=== PATIENT | female | born 1960 | race Caucasian/White ===

== ENCOUNTER → 2020-08-15 14:40 | Outpatient (CLI) | payer OTHER, SELFPAY ==
--- NOTE | ~2020-08-15 | MM_ITS ---
EXAMINATION: MM screening mello BI w ankush HISTORY: Screening mammogram TECHNIQUE: Craniocaudal and mediolateral oblique 3-D tomosynthesis images were obtained and synthetic 2-D images were generated. Bilateral rotated lateral cc views. .CAD analysis was submitted and inter preted. COMPARISON: 01/30/2012 diagnostic left digital mammogram and left breast ultrasound 01/20/2012 bilateral digital screening mammogram 01/13/2011 bilateral diagnostic digital mammogram and left breast ultrasound BREAST PARENCHYMAL COMPOSITION: The breasts are heterogeneously dense, which may obscure small masses . FINDINGS: There is a biopsy marker on the right; history of prior benign right breast biopsy. There a re scattered bilateral benign calcifications. There is no evidence of suspicious mass, calcification, or architectural distortion to suggest malignancy in either breast. There has been no suspicious int erval change. IMPRESSION: 1. No mammographic evidence of malignancy. 2. Recommend routine screening mammography in one year. BI-RADS Category 2: Benign finding(s). Reviewed, dictated and finalized at location A. 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
== END ==
PROVIDERS: PCP Physician Assistant; Visit Provider Physician Assistant
DX: Z12.31 Encounter for screening mammogram for malignant neoplasm of breast (principal)
CPT/HCPCS: 77063; 77067

== ENCOUNTER → 2021-10-04 14:27 | Outpatient (CLI) | payer OTHER, SELFPAY ==
--- NOTE | ~2021-10-04 | MM_ITS ---
EXAMINATION: MM screening mello BI w ankush HISTORY: Screening TECHNIQUE: Craniocaudal and mediolateral oblique 3-D tomosynthesis images were obtained and synthetic 2-D images were generated. CAD analysis was submitted and interpreted. COMPARISON: Comparison to multiple prior studies sequentially, with oldest reviewed study dated 04/2012. BREAST PARENCHYMAL COMPOSITION: The breasts are heterogenously dense, which may obscure small masses. FINDINGS: There is no evidence of suspicious mass, calcification, or architectural distortion to sugg est malignancy in either breast. There has been no suspicious interval change. IMPRESSION: 1. No mammographic evidence of malignancy. 2. Recommend routine screening mammography in one year. BI-RADS Category 1: Negative Reviewed, dictated and finalized at location A. 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
== END ==
PROVIDERS: PCP Physician Assistant; Visit Provider Physician Assistant
DX: Z12.31 Encounter for screening mammogram for malignant neoplasm of breast (principal)
CPT/HCPCS: 77063; 77067

== ENCOUNTER → 2022-11-25 14:22 | Outpatient (CLI) | payer OTHER, SELFPAY ==
--- NOTE | ~2022-11-25 | DEXA_ITS ---
Bone Density Report Name: ALSEIA NEVES V Age: 62 Sex: Female Ethnicity: White Date of : 1960 Indication: postmenopausal; screening for osteoporosis; Referring Provider: NICHOLAS, TONO Study: Bone densitometry was performed. Exam Date: November 25, 2022 Accession number: [id number] Bone Density: Region BMD T-score Z-score Classification AP Spine (L1-L4) 0.826 -2.0 -0.4 Osteopenia Femoral Neck (Left) 0.720 -1.2 0.2 Osteopenia Total Hip (Left) 0.790 -1.2 -0.2 Osteopenia Femoral Neck (Right) 0.696 -1.4 0.0 Osteopenia Total Hip (Right) 0.836 -0.9 0.2 Normal Total Hip Mean 0.813 -1.1 0.0 Osteopenia World Health Organization criteria for BMD impression classify patients as: Normal (T-score at or above -1.0), Osteopenia (T-score between -1.0 and -2.5), or Osteoporosis (T-score at or below -2.5). 10-year Fracture Risk(1): Major Osteoporotic Fracture 7.4% Hip Fracture 0.7% Reported Risk Factors: [place] (), Neck BMD=0.696, BMI=20.6 (1) FRAX(R) Version 3.08. Fracture probability calculated for an untreated patient. Fracture probability may be lower if the patient has received treatment. Clinical Information Provided by Patient: Patient maximum height was 67 Menopause Age: 54 Drinks caffeinated beverages Onset of menses at age 14 Number of children 2 Impression: The patient has low bone mass, based on the Total Spine T-score. The patient has an estimated ten-year risk of hip fracture of 0.7% and an estimated ten-year risk of major fracture of 7.4%, based on the WHO FRAX algorithm. Discussion: BONE DENSITY IS LOW AT ONE OR MORE SKELETAL SITES. This patient's lowest T-score is low at one or more skeletal sites. It meets the World Health Organization's (WHO) criteria for ?low bone mass? (T-score between -1.0 and -2.5). The patient's 10-year risk of fracture as calculated by FRAX is less than the threshold where pharmacological therapy is recommended by the National Osteoporosis Foundation (NOF). However, all treatment decisions require clinical judgment and consideration of individual patient factors, including patient preferences, comorbidities, previous drug use, risk factors not captured in the FRAX model (e.g., frailty, falls, vitamin D deficiency, increased bone turnover, interval significant decline in bone density) and possible under or overestimation of fracture risk by FRAX. The patient should follow a healthful lifestyle (good nutrition with adequate calcium and vitamin D, and appropriate weight-bearing exercise). Follow-Up: Consider repeating this study in 2 to 3 years to reassess this patient's status, or sooner if there is some new clinical indication. Reported by: LB on 11/25/2022 2:48:00 PM. Reviewed, dictated and fin
--- NOTE | ~2022-11-25 | MM_ITS ---
EXAMINATION: MM screening mello BI w ankush HISTORY: Screening mammogram TECHNIQUE: Craniocaudal and mediolateral oblique 3-D tomosynthesis images were obtained and synthetic 2-D images were generated. Bilateral rotated lateral CC views. CAD analysis was submitted and interp reted. COMPARISON: 10/04/2021, 08/15/2020 bilateral screening mammogram examinations are BREAST PARENCHYMAL COMPOSITION: The breasts are heterogeneously dense, which may obscure small masses . FINDINGS: Stable bilateral fibroglandular asymmetry. Scattered benign calcifications. There is no helen dence of suspicious mass, calcification, or architectural distortion to suggest malignancy in either breast. There has been no suspicious interval change. IMPRESSION: 1. No mammographic evidence of malignancy. 2. Recommend routine screening mammography in one year. BI-RADS Category 2: Benign finding(s). Reviewed, dictated and finalized at location A.
== END ==
PROVIDERS: PCP Physician Assistant; Visit Provider Physician Assistant
DX: Z12.31 Encounter for screening mammogram for malignant neoplasm of breast (principal); Z78.0 Asymptomatic menopausal state; M85.88 Other specified disorders of bone density and structure, other site; M85.852 Other specified disorders of bone density and structure, left thigh; M85.851 Other specified disorders of bone density and structure, right thigh
CPT/HCPCS: 77063; 77067; 77080

== ENCOUNTER 2024-10-17 10:29 | Outpatient (CLI) | payer BC, SELFPAY ==
--- NOTE | ~2024-10-17 | MM_ITS ---
EXAMINATION: MM screening mello BI w ankush HISTORY: Screening mammogram TECHNIQUE: Craniocaudal and mediolateral oblique 3-D tomosynthesis images were obtained and synthetic 2-D images were generated. CAD analysis was submitted and interpreted. COMPARISON: 11/25/2022, 10/04/2021, 08/15/2020 BREAST PARENCHYMAL COMPOSITION:Dense: The breasts are heterogeneously dense, which may obscure small masses. FINDINGS: Questionable developing asymmetry in the inner right breast. Stable parenchymal appearance of the left breast. IMPRESSION: Questionable developing asymmetry in right breast. Spot compression views and possibly ultrasound are recommended for further evaluation. BI-RADS Category 0: Incomplete: Needs additional imaging evaluation. Reviewed, dictated and finalized at location . 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 Spot compression views and p ossibly ultrasound are recommended for further evaluation. BI-RADS Category 0: Incomplete: Needs additional imaging evaluation.
== END 2024-10-17 10:30 | disposition home or self-care (01) ==
LOC: MICIMG 10:34
PROVIDERS: PCP Physician Assistant; Visit Provider Physician Assistant
DX: Z12.31 Encounter for screening mammogram for malignant neoplasm of breast (principal); R92.8 Other abnormal and inconclusive findings on diagnostic imaging of breast
CPT/HCPCS: 77063; 77067

== ENCOUNTER 2024-11-08 08:51 | Outpatient (CLI) | payer BC, SELFPAY ==
--- NOTE | ~2024-11-08 | MM_ITS ---
EXAMINATION: MM diagnostic mello RT w ankush HISTORY: Right breast asymmetry TECHNIQUE: Additional 3-D tomosynthesis images of the right breast were performed and synthetic 2-D i mages were generated. CAD analysis was submitted and interpreted. COMPARISON: 10/17/2024, 11/25/2022 BREAST PARENCHYMAL COMPOSITION:Dense: The breasts are heterogeneously dense, which may obscure small masses. FINDINGS: Inner right breast asymmetry effaces with spot compression. No persistent mass lesion or di stortion seen. No suspicious microcalcifications. IMPRESSION: No mammographic evidence for malignancy. BI-RADS Category 1: Negative Reviewed, dictated and finalized at location . 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
== END 2024-11-08 08:52 | disposition home or self-care (01) ==
PROVIDERS: PCP Physician Assistant; Visit Provider Physician Assistant
DX: R92.8 Other abnormal and inconclusive findings on diagnostic imaging of breast (principal)
CPT/HCPCS: 77061; 77065; G0279

== ENCOUNTER 2025-06-20 00:34 | Day surgery (SDC) | payer MEDICARE, SELFPAY ==
[2025-06-07 10:47] VITALS: BMI 21.9
--- OUTSIDE RECORDS SUMMARY | 2025-06-20 00:35 | XMS_ITS | Data Portability ---
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 pt wants it next year when medicare starts. eye and dental UTD DEXA scan November of 2022 osteopenia Not available 09/02/2024 09:04:58 03/03/2025 03/03/2025 Mammogram November of 2022, due colonoscopy 5 years ago. pt wants it next year when medicare starts. eye and dental UTD DEXA scan November of 2022 osteopenia Not available 03/03/2025 08:37:28 Plan of Treatment Reminders Order Date Submit Date Provider Last Modified By Organization Details Last Modified Time Details Appointments ANY 15 2024 07:30A M ROMMEL Santiago Not available Not available Not available Lab HbA1c (hemoglob in A1c), blood 2024 025 [email or web address] [facility], [address], [place], [address], 03/03/2025 08:55:51 CBC w/ auto diff 2024 025 [email or web address] [facility], [address], [place], [address], 03/03/2025 08:55:51 CMP, serum or plasma 2024 025 [email or web address] [facility], [address], [address], [place], [address], 03/03/2025 08:55:51 lipid panel, serum 2024 025 [email or web address] [facility], [address], [address], [place], [address], 03/03/2025 08:55:51 vitamin D, 25-hydrox y, total, serum 2024 025 [email or web address] [facility], [address], [address], [place], [address], 03/03/2025 08:55:51 HbA1c (hemoglob in A1c), blood 2023 025 [email or web address], [address], [address], [place], [address], 03/03/2025 10:14:51 CBC w/ auto diff 2023 025 [email or web address] [facility], [address], [address], [place], [address], 03/03/2025 10:15:00 CMP, serum or plasma 2023 025 [email or web address] [facility], [address], [address], [place], [address], 03/03/2025 10:15:06 TSH + free T4, serum 2023 025 JAIME [facility], [address], [address], [place], [address], 03/01/2025 10:37:32 vitamin B12 + folate, serum or blood 2023 025 [facility], [address], [address], [place], [address], 03/01/2025 10:37:32 lipid panel, serum 2023 025 [facility], [address], [address], [place], [address], 03/01/2025 10:37:32 HbA1c (hemoglob in A1c), blood 2023 024 [facility], [address], [address], [place], [address], 08/29/2024 09:43:49 CBC w/ auto diff 2023 024 [facility], [address], [address], [place], [address], 08/29/2024 09:43:50 CMP, serum or plasma 2023 024 [facility], [address], [address], [place], [address], 08/29/2024 09:43:49 lipid panel, serum 2023 024 [facility], [address], [address], [place], [address], 08/29/2024 09:43:49 Referral None recorded. Procedures colonosco py screening (PROC) - Starting March for she will go on Medicare [address] [facility], [address], [address], [place], [address], 03/03/2025 08:56:00 Surgeries None recorded. Imaging MAMMO, screening , digital, bilateral [address] [facility], [address], [address], [place], [address], 10/18/2024 09:09:41 Medication Orders meloxicam 15 mg tablet 2024 025 [facility], [address], [place], [address], 03/10/2025 10:06:00 fluoxetin e 20 mg capsule 2023 024 [facility], [address], [place], [address], 09/02/2024 08:34:25 bupropion HCl SR 100 mg tablet,12 hr sustained -release 2023 [facility], [address], [place], [address], 09/02/2024 08:34:29 Patient TargetsNo targets recorded. Patient InstructionsNo instructions recorded. Reason for Referral None Reported. Results Created Date Observation Date Name Description Value Unit Range Abnormal Flag Note LastModifiedBy Organization Detail LastModifiedTime 10/17/1910/17/2024 MAMMO , scree federico, digit al, bilat eral No observ ation record ed. [facility] [address], [place], [address], 10/18/2024 10:12:46 11/08/19 25 11/08/2024 MAMMO , scree federico, digit al, bilat eral No observ ation record ed. [facility] [address], [place], [address], 11/10/2024 13:07:24 Result Notes None recorded. Problems Name Problem SNOMED Code Status Onset Date Resolution Date Notes Provider Name and Address Organization Details Recorded Time Prediabetes 452689362 Active 2023 ROMMEL Santiago Attn: Arsalan g,[address] [facility], [place], [address], [place] [facility] 4 21:57:19 Long-term drug therapy Active 2023 ROMMEL Santiago Attn: Arsalan mccoy,[address] [place], [address], [place] [facility] 4 21:57:20 Hyperlipidemia 17036380 Active 2023 ROMMEL Santiago Attn: Arsalan mccoy,[address] [place], [address], [place] [facility] 4 21:57:55 Mixed anxiety and depressive disorder 565217952 Active 2023 ROMMEL Santiago Attn: Arsalan mccoy,[address] [place], [address], [place] [facility] 4 21:58:34 Body mass index 20-24 - normal 224294219 Active 2023 ROMMEL Santiago Attn: Arsalan mccoy,[address] [place], [address], [place] [facility] 5 13:55:33 Osteopenia 386082950 Active 2023 ROMMEL Santiago Attn: Arsalan mccoy,[address] [place], [address], [place] [facility] 4 09:05:09 Family history of cancer of colon 178758476 Active 2023 ROMMEL Santiago Attn: Karenharry mccoy,[address] [place], [address], [place] [facility] 4 09:05:35 Pain of multiple joints 47050119 Active 2024 ROMMEL Santiago Attn: Karenharry mccoy,[address] [place], [address], [place] [facility] 5 13:55:38 Problem Notes None recorded. Procedures Surgical History Date Name Laterality Status Provider Name and Address Organization Details Recorded Time Eye Surgery completed DAMARI Moreno - [facility] 02/17/2024 09:03:15 LEEP completed DAMARI Martínez [facility] 02/17/2024 09:03:21 Imaging Results None recorded. Procedure Notes None recorded. Medical Equipment None Reported. Allergies Allergen ID Allergen Name Allergen Category Reaction Reaction Severity Criticality Documentation Date Start Date Code Code System Note Provider Name and Address Organization Details Recorded Time 835386 Product containin g penicilli n (product) medicatio n Not available Not available Not available 02/16/2024 86230 8001 SNOMED DAMARI Martínez [facility] 4 09:55:14 613460 melon extract food Not available Not available Not available 02/16/2024 64820 10 RxNorm DAMARI Martínez, [facility] 4 09:55:20 Medications Name Sig Start Date Stop Date Status Note LastModified by Organization Details LastModified Time azithromyci n 250 mg tablet TAKE 2 TABLETS BY MOUTH ON DAY 1, AND THEN TAKE 1 TABLET BY MOUTH ONCE A DAY ON DAY 2 THROUGH DAY 5 12/27 completed Not Available Not Available Not Available ofloxacin 0.3 % eye drops INSTILL 1 DROP INTO AFFECTED EYE 4 TIMES DAILY FOR 5-7 DAYS 12/27 completed Not Available Not Available Not Available valacyclovi r 1 gram tablet TAKE 2 TABLETS BY MOUTH EVERY 12 HOURS NEEDED FOR FLARE UPS active Not Available Not Available No t Available meloxicam 15 mg tablet TAKE 1 TABLET BY MOUTH ONCE DAILY NEEDED active Not Available Not Available No t Available triamcinolo ne acetonide 0.1 % topical cream APPLY A THIN LAYER TOPICALLY TO THE AFFECTED AREA(S) OF THE FACE TWICE DAILY NEEDED. ONLY USE FOR 7 DAYS AT A TIME. 02/16 completed Not Available Not Available Not Available bupropion HCl SR 100 mg tablet,12 hr sustained-r elease TAKE 1 TABLET BY MOUTH TWICE DAILY active Not Available Not Available No t Available alprazolam 0.25 mg tablet TAKE 1 TABLET BY MOUTH THREE TIMES DAILY NEEDED FOR PLANE TRAVEL 03/03 completed Not Available Not Available Not Available doxycycline monohydrate 100 mg capsule TAKE 1 CAPSULE BY MOUTH TWICE DAILY FOR 1 DAY AND THEN 1 CAPSULE ONCE DAILY UNTIL GONE 02/16 completed Not Available Not Available Not Available fluoxetine 10 mg capsule TAKE 1 CAPSULE BY MOUTH ONCE DAILY 02/16 completed Not Available Not Available Not Available estradiol 0.01% (0.1 mg/gram) vaginal cream APPLY A GRAPE SIZED AMOUNT TO INTROITUS AND VAGINA WITH CLEAN FINGER 3 NIGHTS PER WEEK. 03/03 completed Not Available Not Available Not Available fluoxetine 20 mg capsule Take 1 capsule by mouth once daily 2024 active Not Available Not Available Not Avai lable chlorhexidi ne gluconate 0.12 % mouthwash RINSE MOUTH WITH 15ML (1 CAPFUL) FOR 30 SECONDS IN THE MORNING AND THE EVENING AFTER BRUSHING. SPIT AFTER RINSING AND DO NOT SWALLOW. 02/16 completed Not Available Not Available Not Available Vitals Date Recorded Body weight Body mass index (BMI) Systolic And Diastolic Provider Name and Address Organization Details Last Updated DateTime 02/17/2024 67948.63 g 22.2 kg/m2 120/70 mm[Hg] ROMMEL Santiago Attn: Accounting,[address] [place], [address], [facility] 02/17/2024 08:50:39 Date Recorded Respiratory rate Oxygen saturation Oxygen saturation in Arterial blood by Pulse oximetry Heart rate Body height Systolic And Diastolic Provider Name and Address Organization Details Last Updated DateTime 4 20 /min 98 % 98 % 72 /min 170.82 cm 112/72 mm[Hg] Nery Nicole MA [facility] 4 08:34:51 Date Recorded Systolic And Diastolic Provider Name and Address Organization Details Last Updated DateTime 03/03/2025 128/80 mm[Hg] ROMMEL Santiago Attn: Accounting,[address] [place], [address], [facility] 03/03/2025 08:56:14 Date Recorded Body height Body mass index (BMI) Body weight Respiratory rate Heart rate Oxygen saturation Oxygen saturation in Arterial blood by Pulse oximetry Systolic And Diastolic Provider Name and Address Organization Details Last Updated DateTime 5 170.82 cm 22.7 kg/m2 10909.4 9 g 16 /min 81 /min 97 % 97 % 158/88 mm[Hg] Seema Brock [facility] 5 08:29:03 Date Recorded Respiratory rate Systolic And Diastolic Provider Name and Address Organization Details Last Updated DateTime 09/02/2024 18 /min 120/72 mm[Hg] ROMMEL Santiago Attn: Accounting,[address] [facility], [place], [address], [facility] 09/02/2024 08:57:44 Date Recorded Body mass index (BMI) Body weight Oxygen saturation Oxygen saturation in Arterial blood by Pulse oximetry Heart rate Systolic And Diastolic Provider Name and Address Organization Details Last Updated DateTime 22.4 kg/m2 00965.3 g 98 % 98 % 77 /min 142/80 mm[Hg] Nery Nicole MA [facility] 4 08:38:17 Date Recorded Body height Provider Name an d Address Organization Details Last Updated DateTime 09/02/2024 170.82 cm Seema Brock [facility] 09/02/20 24 08:27:40 Social History Question Answer Notes LastModified by Organizat ion Details LastModified Time Tobacco Smoking Status Former Smoker Nery Nicole MA null, [facility] 02/16/2024 09:54:05 Do You Have An Advance Directive? No Information not available 02/16/2024 Are You Blind Or Do You Have Difficulty Seeing? No Information not available 02/17/2024 What Is Your Level Of Caffeine Consumption? Occasional Coffee Information not available 02/16/2024 In The 14 Days Before Symptom Onset, Have You Had Close Contact With A Laboratory-confir med COVID-19 While That Case Was Ill? No Information not available 02/16/2024 In The 14 Days Before Symptom Onset, Have You Had Close Contact With A Person Who Is Under Investigation For COVID-19 While That Person Was Ill? No Information not available 02/16/2024 Have You Been To An Area Known To Be High Risk For COVID-19? No Information not available 02/16/2024 Are You Deaf Or Do You Have Serious Difficulty Hearing? No Information not available 02/17/2024 What Type Of Diet Are You Following? REGULAR Information not available 02/16/2024 Are There Any Guns Present In Your Home? No Information not available 02/16/2024 What Was The Date Of Your Most Recent Tobacco Screening? 03/03/2025 [email or web address] Information not available 03/03/2025 What Is Your Relationship Status? Information not available 02/16/2024 Do You Use Your Seat Belt Or Car Seat Routinely? Yes Information not available 02/16/2024 Do You Have Smoke And Carbon Monoxide Detectors In Your Home? Yes Information not available 02/16/2024 Do You Use Sunscreen Routinely? Yes Information not available 02/16/2024 Has Tobacco Cessation Counseling Been Provided? Yes Information not available 02/17/2024 On What Date Was Tobacco Cessation Counseling Provided? 03/03/2025 [email or web address] Information not available 03/03/2025 Sex: Female Functional Status Question Answer Note LastModified by Organizat ion Details LastModified Time Do you use any illicit or recreational drugs? No Information not available 02/16/2024 Do you or have you ever used any other forms of tobacco or nicotine? No Information not available 02/16/2024 What is your level of alcohol consumption? Occasional WINE @ DINNER Information not available 02/16/2024 Are you currently employed? Yes Information not available 02/17/2024 Are you able to care for yourself independently? 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 Moderate Information not available 02/16/2024 Mental Status Question Answer Note LastModified by Organization D etails LastModified Time Do you feel stressed (tense, restless, nervous, or anxious, or unable to sleep at night)? [id number] Information not available 02/16/2024 Family History Relationship Description Onset Age of this Age Resolved Age Notes LastModified by Organization Details LastModified Time Father Harmful pattern of use of alcohol [email or web address] Not available 2023 09:03:47 Father Diabetes mellitus [email or web address] Not available 2023 09:04:01 Father Heart disease [email or web address] Not available 2023 09:04:07 Mother Malignant neoplasm of colon tcarterma Not available 2023 09:03:54 Sister Malignant neoplasm of ovary tcarterma Not available 2023 09:04:14 Medical History Condition Response Coronary Artery Disease N Other N Atrial Fibrillation N High Blood Pressure N Thyroid Problems N Kidney or Bladder Problems N GI Problems N Depression Y COPD N Blood Clots N Skin Problems N Anemia N Heart Attack ([place]) N Diabetes N Anxiety Disorder Y Muscle, Joint, or Bone Problems N Seizures/Epilepsy N Acid Reflux (GERD) N Cancer N Stroke N Asthma N Allergies N High Cholesterol N Hepatitis N Liver Disease N Headaches N Osteoporosis N Heart Failure N Gynecological History Statement/Question Response Menses Monthly N Current Control Method None Obstetrics History GPAL:G 3 P 2 0 0 2 Type Value Full Term 2 Induced 0 Spontaneous 0 Premature 0 Living 2 Total 3 Immunizations Vaccine Type Date Status Note Provider Nam e and Address Organization Details Recorded Time Influenza, MDCK, quadrivalent, PF 0 completed Nery [place], [place] [facility] 09/02/2024 08:34:48 Influenza, MDCK, quadrivalent, PF 8 completed Nery [place] [facility] 09/02/2024 08:34:48 Influenza, MDCK, quadrivalent, PF 2 completed Nery [place] [facility] 09/02/2024 08:34:48 Influenza, MDCK, quadrivalent, PF 3 completed N[place] [facility] 09/02/2024 08:34:48 zoster recombinant 4 completed N[place] [facility] 09/02/2024 08:34:48 zoster recombinant 3 completed N[place] [facility] 09/02/2024 08:34:48 COVID-19, mRNA, LNP-S, PF, 100 mcg/0.5mL dose or 50 mcg/0.25mL dose 1 completed N[place] [facility] 09/02/2024 08:34:48 COVID-19, mRNA, LNP-S, PF, 100 mcg/0.5mL dose or 50 mcg/0.25mL dose 1 completed Nery [place] [facility] 09/02/2024 08:34:48 COVID-19, mRNA, LNP-S, PF, 100 mcg/0.5mL dose or 50 mcg/0.25mL dose 2 completed Nery [place] [facility] 09/02/2024 08:34:48 COVID-19, mRNA, LNP-S, PF, 100 mcg/0.5mL dose or 50 mcg/0.25mL dose 1 completed N[place] [facility] 09/02/2024 08:34:48 COVID-19, mRNA, LNP-S, bivalent, PF, 30 mcg/0.3 mL dose 2 completed N[place] [facility] 09/02/2024 08:34:48 Tdap 9 completed DAMARI [place] [facility] 09/02/2024 08:34:48 Influenza, split virus, quadrivalent, PF 1 completed DAMAR[place], [place] [facility] 09/02/2024 08:34:48 Influenza, MDCK, trivalent, PF 4 completed Not Available [facility] 03/03/2025 08:21:25 Past Encounters Encounter ID Performer Location Encounter Start Date Encounter Closed Date Diagnosis/Indication Diagnosis SNOMED-CT Code Diagnosis ICD10 Code Diagnosis IMO Codes Diagnosis Note [id number] Chino Dodd MD [facility] [place] [address] [place] [address] 02/17/2024 08:24:01 02/17/2024 09:01:56 Adult health examination 045143088 Z00.01 annual wellness completed Mixed anxi ety and depressive disorder 363493994 F41.8 Boost fluoxetine to 20mg daily with increase in anxiety and depression symptoms. . continue wellbutrin Sr 100mg bid. Long-term drug therapy 062929718 Z79.899 CBC and CMP due in Jul. Prediabetes 872374989 R7 3.03 5.9% a1c. dietary managed. Hyperlipidemia 77280942 E78.5 LDL 128. managing with diet and exercise. repeat fasting labs in [id number] Chino Dodd MD [facility] [employer] [address] [place] [address] 09/02/2024 08:22:26 09/02/2024 09:00:38 Body mass index 20-24 - normal 153396271 Z68.22 BMI 22.4 Mixed anxi ety and depressive disorder 253616211 F41.8 Boost fluoxetine to 20mg daily with increase in anxiety and depression symptoms. . continue wellbutrin Sr 100mg bid. Hyperlipidemia 56420792 E78.5 LDL 116, Trigs 86, HDL 52, total 187. Prediabetes 008212730 R7 3.03 6%. Repeat labs in February Long-term drug therapy 330375236 Z79.899 Next set of labs due in February Screening mammography 24 229578 Z12.31 Mammogram is due order given Osteopenia 894824176 M85 .80 DEXA due 2024 Family his tory of cancer of colon 898274448 Z80.0 Mother history of colon cancer patient is due for a colonoscop y this year but she wants to opt to get it next year when Medicare starts [id number] Chino Dodd MD [facility] [employer] [address] [place] [address] 03/03/2025 08:18:02 03/03/2025 09:24:17 Body mass index 20-24 - normal 894196635 Z68.22 77548718 BMI 22.7 Mixed anxi ety and depressive disorder 102379010 F41.8 fluoxetine to 20mg daily with increase in anxiety and depression symptoms. . continue wellbutrin Sr 100mg bid. Hyperlipidemia 40040643 E78.5 LDL up to 126. Other parameters in good range. Focus in on diet and exercise and repeat fasting lipids in August. Prediabetes 350075888 R7 3.03 6.1%. Focus on the diet and exercise continue to monitor A1c Long-term drug therapy 422789834 Z79.899 CBC and CMP ordered for August Osteopenia 797836680 M85 .80 DEXA due 2024, ordered and scheduled. Vitamin-D lab due Family his tory of cancer of colon 529815560 Z80.0 Mother history of colon cancer patient is due for a colonoscop y this year but she wants to opt to get it next year when Medicare starts Pain of mu ltiple joints 12464872 M25.50 243486 Trial of meloxicam 15 mg daily as needed for joint pain and arthritis Adult heal th examination 989068702 Z00.00 8088755 annual wellness completed Health Concerns Section Related Observation LastModified by Organization Detai ls LastModified Time None Recorded Concern Status LastModified by Organization Details LastModified Time None Recorded Advance Directives Directive N: Payers Insurance Date Sequence Insurance Name Policy Number Policy Sotelo Covered Member ID Sotelo Member ID Guarantor Name 03/14/2025 1 [place] [id number] Richelle Buitrago [id number] Richelle Buitrago Notes Date Note Type Note Provider Name and Address Organization Details Recorded Time 02/17/20 24 text/htm l Anxiety/DepressionReported by Patientstable on bupropion SR 100mg bid and fluoxetine 10mg daily. Here for wellness appt. ROMMEL Santiago Attn: Accounting, [address] [place], [address], [facility] 03/12/2024 21:59:14 09/02/20 24 text/htm l HyperlipidemiaReported by PatientHPIFor duration, patient reportschronic. For control, patient reportsusually well controlled. For compliance, patient reportscompliantandcompliant with diet. For complications, patient reportsno coronary artery disease,no peripheral artery disease, andno cardiovascular disease. Anxiety/DepressionReported by PatientHPIFor onset/timing, patient reportsstill present. For modifying factors, patient reportsmedications as directed. Prediabetes history A1c has been 5.9% prior ROMMEL Santiago Attn: Accounting, [address] [place], [address], [facility] 09/02/2024 09:06:34 03/03/20 25 text/htm l HyperlipidemiaReported by PatientHPIFor duration, patient reportschronic. For control, patient reportsusually well controlled. For compliance, patient reportscompliantandexercises.LDL 126, diet controlled Anxiety/DepressionReported by PatientHPIFor onset/timing, patient reportsstill present. For modifying factors, patient reportsmedications as directed. For associated symptoms, patient reportsdenies homicidal ideations,no significant weight gain,no significant weight loss,no visual/auditory hallucinations,no delusions,no shortness of breath,mood good,no anxiety,no crying spells,no panic,no isolation,sleeping well,appetite good,energy good,no apathy, andmaintaining functionality.Stable on bupropion and fluoxetine Prediabetes with an A1c of 6.1% History of osteopenia Patient complains of multiple joint pain ROMMEL Santiago Attn: Accounting, [address] [facility], [place], [address], [facility] 03/13/2025 13:55:56 OBGyn Episode No OBEpisode recorded.
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
[2025-06-20 06:10] VITALS: BP 113/64; PULSE 74; RESP 16; TEMP 36.7; O2SAT 97; BMI 21.7
[2025-06-20] MEDS: LACTATED RINGERS 1,000 ML 150 ML IV CONT (06:26)
--- NOTE | 2025-06-20 07:02 | WPDANESEPPF ---
Anes - Initial Pre Proc Eval Procedure: Operation Date: 06/20/25 07:30 Proposed Procedures p Screening Colonoscopy - Elier Rivera MD Date/Time: 06/20/25 07:02 Surgeon: Elier Rivera MD Pre Op Diagnosis: Family Hx of malignant neoplasm of digestive organ Patient Data Age: 65 Gender: F Height: 1.7 m Weight: 62.9 kg Last Vital Signs Temp 36.7 C 06/20/25 06:10 Pulse 74 06/20/25 06:10 Resp 16 06/20/25 06:10 BP 113/64 06/20/25 06:10 Pulse Ox 97 06/20/25 06:10 O2 Del Method Room Air 06/20/25 06:10 Allergies Allergy/AdvReac Type Severity Reaction Status Date / Time Penicillins Allergy Mild RASH Verified 06/20/25 06:16 melon Allergy Unknown ITCHY Verified 06/20/25 06:16 THROAT Home Medications ?Medication ?Instructions ?Recorded ?Confirmed ?Type alprazolam 0.25 mg tablet 0.25 mg PO DAILY 04/06/20 06/07/25 History bupropion HCl 100 mg tablet 100 mg PO BID 04/06/20 06/20/25 History xmwpewbc-tmn-dptot acid 0.4 1 tablet PO DAILY 04/06/20 06/20/25 History mg-lycopene 300 mcg-lutein 250 mcg tablet (Complete Multivitamin Adult 50 Plus) omega 3 600 mg-dha 216 mg-epa 324 1 cap PO DAILY 04/06/20 06/20/25 History mg-fish oil 1,200 mg capsule,del rel valacyclovir 1 gram tablet 1,000 mg PO DAILY 04/06/20 06/07/25 History fluoxetine 20 mg capsule 20 mg PO DAILY 06/07/25 06/20/25 History Patient hx anesthesia problems: none Family hx anesthesia problems: none Results Review: All pre-operative results and documents have been reviewed as part of the pre-operative evaluation. PMFSH Past Medical History Medical History (Updated 04/06/20 @ 13:03 by Cydney Triplett MA) Depression Anxiety Surgical History Surgical History (Updated 04/06/20 @ 13:03 by Cydney Triplett MA) H/O LEEP Family History Family History (Updated 04/06/20 @ 13:05 by Cydney Triplett MA) Sibling Cervical cancer Hypertension Mother Carcinoma of colon Father Diabetes mellitus Acute myocardial infarction Social History Social History (Updated 04/06/20 @ 13:06 by Cydney Triplett MA) Smoking status: Never smoker Tobacco type: cigarettes Smoking end date: 10/15/18 Alcohol intake: current Drinks per week: 2 Substance use: never Substance use type: does not use Living arrangements: with family Spiritual care concerns: No Anes - Eval Final PreProcedure Day of Procedure 06/20/25 07:02 Patient weight: normal Heart: regular rate and rhythm Lungs: clear to auscultation and normal air movement Airway: Mallampati scale class II Neurological: alert and oriented Last oral intake: >/= 8 hours ASA classification: II Emergent: no Anesthetic plan: proceed Anesthesia type and monitoring: general GIVS and standard monitoring Results Review: All pre-operative results and documents have been reviewed as part of the pre-operative evaluation. Informed Consent: The patient's anesthetic plan and its attendant risks and benefits were discussed with the patient/family/POA. Questions were solicited and answers provided to the satisfaction of the patient/family/POA.
--- NOTE | 2025-06-20 07:36 | PM.IMHP ---
H&P: HPI History of Present Illness Date/Time: 06/20/25 07:36 Chief Complaint: Screening colonoscopy Narrative: This is the patient's first colonoscopy. There are no GI symptoms . Her mother was diagnosed with rectal cancer at age 70. Review of Systems Review of Systems: All systems reviewed & are unremarkable except as noted in HPI and below PMFSH Past Medical History Medical History (Updated 06/20/25 @ 07:37 by Elier Rivera MD) Depression Anxiety Surgical History Surgical History (Updated 04/06/20 @ 13:03 by Cydney Triplett MA) H/O LEEP Family History Family History (Updated 04/06/20 @ 13:05 by Cydney Triplett MA) Sibling Cervical cancer Hypertension Mother Carcinoma of colon Father Diabetes mellitus Acute myocardial infarction Social History Social History (Updated 04/06/20 @ 13:06 by Cydney Triplett MA) Smoking status: Never smoker Tobacco type: cigarettes Smoking end date: 10/15/18 Alcohol intake: current Drinks per week: 2 Substance use: never Substance use type: does not use Living arrangements: with family Spiritual care concerns: No Meds Home Medications and Allergies Home Medications ?Medication ?Instructions ?Recorded ?Confirmed ?Type alprazolam 0.25 mg tablet 0.25 mg PO DAILY 04/06/20 06/07/25 History bupropion HCl 100 mg tablet 100 mg PO BID 04/06/20 06/20/25 History yugzrpan-uai-hefeu acid 0.4 1 tablet PO DAILY 04/06/20 06/20/25 History mg-lycopene 300 mcg-lutein 250 mcg tablet (Complete Multivitamin Adult 50 Plus) omega 3 600 mg-dha 216 mg-epa 324 1 cap PO DAILY 04/06/20 06/20/25 History mg-fish oil 1,200 mg capsule,del rel valacyclovir 1 gram tablet 1,000 mg PO DAILY 04/06/20 06/07/25 History fluoxetine 20 mg capsule 20 mg PO DAILY 06/07/25 06/20/25 History Allergies Allergy/AdvReac Type Severity Reaction Status Date / Time Penicillins Allergy Mild RASH Verified 06/20/25 06:16 melon Allergy Unknown ITCHY Verified 06/20/25 06:16 THROAT Vital Signs Vital Signs - 24 hr 06/20/25 06:10 Temperature 98.1 F Pulse Rate 74 Respiratory Rate 16 Blood Pressure 113/64 Pulse Oximetry 97 Oxygen Delivery Room Air Exam Const: General: cooperative and healthy appearing Resp: Effort & Inspection: normal respiratory effort and able to speak in complete sentences Auscultation: clear to auscultation bilaterally Cardio: Rate: regular rate Rhythm: regular rhythm GI: Inspection: normal to inspection GI Palp: No No hepatosplenomegaly present Auscultation: normal bowel sounds Rectal Exam: deferred Skin: General skin exam: normal color Psych: Appearance: grossly normal Mental Status: mental status grossly normal Assessment and Plan Assessment and plan (1) Encounter for screening colonoscopy: Code(s): Z12.11 - Encounter for screening for malignant neoplasm of colon Status: Acute Assessment and Plan: The patient is deemed a good candidate for the procedure. Consent signed. Will proceed.
[2025-06-20] MEDS: SIMETHICONE ORAL SUSPENSION 20 MG/0.3 ML 30 ML BOTTLE 0.6 ML IRRIGATION (07:43)
--- NOTE | 2025-06-20 07:52 | S_PTH ---
PATIENT: Richelle Buitrago V LOC: [facility]#:[id number] AGE/SX: 65/F ROOM: RE06/20/[address]: Elier Rivera MD : 1960 BED: DIS: 06/20/2025 SPEC #: [id number] RECD: 06/20/25 08:16 STATUS: MILO REAbdirashid #: [id number] NAHEED: 06/20/25 07:[address]: Elier Rivera DEPT: [facility] Surgical RECD BY: Cherelle Ramos ENTERED: 06/20/25 08:16 SP TYPE: Surgical OTHR DR: Meliza Javier, PATomas Tissues: A - Colon Polypectomy Procedures: Hematoxylin and Eosin Stain Gross and Microscopic Level 4
[2025-06-20 07:54] VITALS: BP 73/48; PULSE 64; RESP 18; O2SAT 96
[2025-06-20 07:59] VITALS: BP 91/52; PULSE 68; RESP 18; O2SAT 97
[2025-06-20 08:04] VITALS: BP 94/59; PULSE 62; RESP 18; O2SAT 100
[2025-06-20 08:14] VITALS: BP 96/59; PULSE 60; RESP 18; O2SAT 100
== END 2025-06-20 08:24 | disposition home or self-care (01) ==
PROVIDERS: PCP Physician Assistant; Referring Provider Physician Assistant; Visit Provider Internal Medicine Gastroenterology
PROC: 0DJD8ZZ Inspection of Lower Intestinal Tract, Via Natural or Artificial Opening Endoscopic (ICD-10-PCS; CPT 45378; principal; 2025-06-20 07:30)
DX: Z12.11 Encounter for screening for malignant neoplasm of colon (principal); K63.5 Polyp of colon; F32.A Depression, unspecified; F41.9 Anxiety disorder, unspecified; Z98.890 Other specified postprocedural states; Z80.0 Family history of malignant neoplasm of digestive organs; Z80.49 Family history of malignant neoplasm of other genital organs; Z82.49 Family history of ischemic heart disease and other diseases of the circulatory system
CPT/HCPCS: 45385; 88305; J2003; J2704; J7120

== ENCOUNTER 2025-09-04 12:13 | Outpatient (CLI) | payer MEDICARE, SELFPAY ==
--- NOTE | ~2025-09-04 | XR_ITS ---
XR finger 3rd RT min 2V 09/04/2025 12:34 Indication: Right third finger pain Procedure: 4 views right third finger Comparison: No prior studies for comparison. Findings: There is polyarticular osteoarthritis, severe at the distal interphalangeal joint. No acute fracture or traumatic malalignment. Mild soft tissue swelling. No foreign bodies. 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 Reviewed, dictated and finalized at location O. 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
== END 2025-09-04 12:14 | disposition home or self-care (01) ==
LOC: MICIMG 12:14
PROVIDERS: PCP Physician Assistant; Visit Provider Physician Assistant
DX: M19.041 Primary osteoarthritis, right hand (principal)
CPT/HCPCS: 73140